=== PATIENT | female | born 1945 | race Caucasian/White ===

== ENCOUNTER 2020-01-08 14:36 | Outpatient (CLI) | payer MEDICARE, BC ==
--- NOTE | 2020-01-08 16:34 | RAD ---
RIGHT FOOT THREE VIEWS: 01/08/20 No fracture was seen. There is some thickening or undulation to the cortex of the second and third me tatarsal shaft. There could have been old periosteal reaction here from either a prior stress injury or this could be age related change. The findings do not appear acute. The joints were unremarkable. No gross fractures were identified. IMPRESSION: No definite acute findings Possible old changes to the second and third metatarsals. POS: HOME
== END 2020-01-08 14:37 | disposition home or self-care (01) ==
LOC: BURRAD 14:36
PROVIDERS: ATTEND Family Medicine
DX: M79.671 Pain in right foot (principal)